=== PATIENT | female | born 1945 | race Caucasian/White ===

== ENCOUNTER 2016-11-19 05:31 | Day surgery (SDC) | payer OTHER, BC ==
[~2016-11-19] VITALS: Ht 162.6 cm; Wt 79.4 kg
--- NOTE | ~2016-11-19 | O ---
[facility] [place] [address] OPERATIVE REPORT Name: NOHEMI RAJPUT Room #: [facility]P [facility]..#: [id number] Admission: 11/19/16 Attend Phys: Perry Champion MD Discharge: 11/19/16 Date of : 43 Report #: [id number] THIS REPORT FOR: //name// CC: Earlene Champion DATE OF SERVICE: 11/19/2016 PREOPERATIVE DIAGNOSES: 1. Right foot second hammer toe deformity. 2. Left foot plantar fasciitis. 3. Left midfoot osteoarthritis. POSTOPERATIVE DIAGNOSES: 1. Right foot second hammer toe deformity. 2. Left foot plantar fasciitis. 3. Left midfoot osteoarthritis. PROCEDURE: 1. Right foot second metatarsal head excision. 2. Left foot plantar fascia steroid injection. 3. Left midfoot steroid injection. SURGEON: Perry Champion MD PALLET ASSEMBLER: MARCIA Montez ANESTHESIA: General. ESTIMATED BLOOD LOSS: Minimal. DRAINS: No drains. TOURNIQUET TIME: 15 minutes on the right side. DESCRIPTION OF PROCEDURE: The patient was brought to the operating room where she was placed under general anesthesia. Once under adequate general anesthesia, 2 syringes with 1 mL each of 40 mg of Depo-Medrol and 1 mL each of 2% lidocaine was then . Injection was then placed into the origin of the plantar fascia on the left foot as well as in the navicular cuneiform joint under sterile condition. Prepping with alcohol. Once complete, the right lower extremity was then prepped and draped in sterile manner. The extremity was elevated, exsanguinated, tourniquet placed to 300 mmHg. A dorsal incision at the 2-3 webspace was then made to dissect down through soft tissue to the dorsal second metatarsal neck region. Hohmann elevators were placed about this and a sagittal saw was then used to transect the metatarsal neck in an oblique [facility] [address] [place] [address] OPERATIVE REPORT Name: NOHEMI RAJPUT Room #: [facility]P [facility]..#: [id number] Admission: 11/19/16 Attend Phys: Perry Champion MD Discharge: 11/19/16 Date of : 43 Report #: [id number] fashion. Once incised, the metatarsal head and neck was able to be removed utilizing a rongeur and with an elevator and a 15 blade. All soft tissues were released and the metatarsal head was excised. Once complete, the wound was irrigated copiously and closed with 4-0 Vicryl in subcutaneous tissues and 4-0 nylon for the skin. The wounds were dressed with Xeroform, 4 x 4s, and a sterile soft compressive dressing was placed. Tourniquet was let down at approximately 15 minutes. Toes were pink and warm with good capillary refill. There were no complications from the procedure. The patient tolerated the procedure well and went to the recovery room without incident. <ELECTRONICALLY SIGNED> By: Perry Champion MD 11/20/16 0933 [id number] Perry Champion MD /nt
[~2016-11-19 05:31] MED LIST: CULTURELLE1 EACH PO; ESTRATEST H.S.1 EACH PO; LEVOTHYROXIN0.112 M1 PO; LEVOTHYROXIN0.125 M1 PO; MULTIVITAMINS1 EAC7 PO; OMEPRAZOLE 20 M20 M1 PO; PERCOCET PO; SYNTHROID125 MCG PO; TURMERIC500 M1 PO; ZYRTEC10 M5 PO
[2016-11-19 11:00] VITALS: BP 148/96
[2016-11-19] MEDS ORDERED: PERCOCET PO (13:02)
[2016-11-19 13:36] VITALS: BP 148/96
== END 2016-11-19 14:21 | disposition home or self-care (01) ==
LOC: OR 05:31 → TBA 05:31 → OR 10:36
DX: M20.41 Other hammer toe(s) (acquired), right foot (principal); M72.2 Plantar fascial fibromatosis; M19.072 Primary osteoarthritis, left ankle and foot; Z87.891 Personal history of nicotine dependence; K21.9 Gastro-esophageal reflux disease without esophagitis; I49.3 Ventricular premature depolarization; E03.9 Hypothyroidism, unspecified; Z98.890 Other specified postprocedural states
CPT/HCPCS: 50010; 50101; 50386; 50951; 56526; 56528; 57091; 62110; 62900; 70005

== ENCOUNTER → 2017-02-08 | Outpatient (CLI) | payer OTHER, BC | LOC: MRI 09:39 | DX: M19.071 Primary osteoarthritis, right ankle and foot (principal) ==

== ENCOUNTER → 2017-12-26 | Outpatient (CLI) | payer OTHER, BC | LOC: MRI 10:01 | DX: M25.774 Osteophyte, right foot (principal); R60.0 Localized edema ==

== ENCOUNTER → 2019-03-28 | Outpatient (CLI) | payer OTHER, BC | LOC: MRI 09:23 | DX: S83.242A Other tear of medial meniscus, current injury, left knee, initial encounter (principal); M25.462 Effusion, left knee; M17.12 Unilateral primary osteoarthritis, left knee; X58.XXXA Exposure to other specified factors, initial encounter; Y93.89 Activity, other specified; Y92.89 Other specified places as the place of occurrence of the external cause; Y99.8 Other external cause status ==